=== PATIENT | female | born 1960 | race Asian ===

== ENCOUNTER 2019-02-03 08:03 | Emergency (ER) | payer BC ==
[~2019-02-03] VITALS: Ht 157.5 cm; Wt 54.0 kg
[2019-02-03 08:03] VITALS: BP_SYST 112
--- NOTE | 2019-02-03 08:03 | NUR ---
BROUGHT BACK TO BED #4 VIA WHEELCHAIR, PLACED IN BED #4 AND TRIAGED. REPORT GIVEN TO IVAN
--- NOTE | 2019-02-03 08:20 | NUR ---
Patient presented to ER with C/O SOB and left chest and left back pain. Patient A&Ox4, afebrile, brought to ER bed 4 via wheelchair, ambulatory at home, pain 10/, denies N/V/D. Patient states SOB and left chest/back pain started last night around 8 pm. Patient states she took advil, pain decreased but this am pain intense. prompting ER visit.
--- NOTE | 2019-02-03 08:30 | NUR ---
ER Dr. Sexton at bedside examining patient.
[2019-02-03] MEDS ORDERED: KETOROLAC TROMETHAMINE 30 MG VIAL IVP ONE (08:45)
[2019-02-03 09:09] LABS: BASOPHILS # (AUTO) 0.1 K/uL (0.0-0.2); EOSINOPHILS # (AUTO) 0.3 K/uL (0.0-0.4); EOSINOPHILS % (AUTO) 4.4 % (0.0-4.0); HEMATOCRIT 42.1 % (36-48); HEMOGLOBIN 13.8 g/dL (12.0-16.0); LYMPHOCYTES # (AUTO) 1.8 K/uL (1.0-5.5); LYMPHOCYTES % (AUTO) 23.4 % (20.5-51.5); MEAN CORPUSCULAR HEMOGLOBIN 28 pg (27-31); MEAN CORPUSCULAR HGB CONC 33 % (32-36); MEAN CORPUSCULAR VOLUME 86 fL (79.0-98.0); MONOCYTES # (AUTO) 0.8 K/uL (0.0-1.0); NEUTROPHILS # (AUTO) 4.8 K/uL (1.8-7.7); NEUTROPHILS % (AUTO) 61.2 % (40.0-70.0); PLATELET COUNT (AUTO) 256 K/uL (130-430); RED BLOOD CELL COUNT(AUTO) 4.92 MIL/uL (4.2-6.2); RED CELL DISTRIBUTION WIDTH 13.5 % (9.0-15.0); WHITE BLOOD COUNT (AUTO) 7.8 K/uL (4.8-10.8)
[2019-02-03 09:18] LABS: CALCIUM 8.9 mg/dL (8.4-11.0); CREATININE 0.64 mg/dL (0.55-1.30); POTASSIUM 4.4 mmol/L (3.5-5.1)
[2019-02-03 09:23] LABS: ALBUMIN 3.6 g/dL (3.4-4.8); TOTAL BILIRUBIN 0.5 mg/dL (0.0-1.0)
[2019-02-03 10:55] VITALS: BP_SYST 112
--- NOTE | 2019-02-03 10:55 | NUR ---
Patient given written and verbal discharge instructions and verbalizes understanding. ER MD discussed with patient the results and treatment provided. Patient in stable condition. ID arm band removed. IV catheter removed intact and dressing applied, no active bleeding. Rx of Motrin, atarax given. Patient educated on pain management and to follow up with PMD. Pain Scale 2/10 tolerable for patient. Opportunity for questions provided and answered. Medication side effect fact sheet provided.
== END 2019-02-03 10:55 | disposition home or self-care (01) ==
LOC: SED 08:03
DX: F41.9 Anxiety disorder, unspecified (principal); R07.9 Chest pain, unspecified
CPT/HCPCS: 36415; 71045; 80053; 84484; 85025; 85379; 96374; 99284; J1885

== ENCOUNTER 2022-03-17 10:18 | Emergency (ER) | payer BC ==
[~2022-03-17] VITALS: Ht 157.5 cm; Wt 55.3 kg
[2022-03-17 10:32] VITALS: BP_SYST 121
[2022-03-17] MEDS ORDERED: NACL 0.9% 1,000 ML IV ONE (12:00)
[2022-03-17] MEDS ORDERED: ONDANSETRON HCL 4 MG/2 ML VIAL IVP ONE (12:00)
[2022-03-17] MEDS ORDERED: ACETAMINOPHEN 500 MG TABLET PO ONE (12:15)
[2022-03-17 14:06] VITALS: BP_SYST 121
== END 2022-03-17 14:06 | disposition home or self-care (01) ==
LOC: SED 10:18
DX: B34.9 Viral infection, unspecified (principal); R50.9 Fever, unspecified; R11.0 Nausea; R51.9 Headache, unspecified; Z79.899 Other long term (current) drug therapy
CPT/HCPCS: 99283; 96374; 71046; 96361; J2405; J7030